=== PATIENT | female | born 1950 | race Caucasian/White ===

== ENCOUNTER → 2025-09-20 10:48 | Outpatient (CLI) | payer OTHER, SELFPAY ==
--- NOTE | 2025-09-20 10:50 | EKG_ITS ---
[address] [address] Test Date: 2025-09-20 Pat Name: Adela Peralta Department: Located Within [facility] Room: Gender: Female Court Bailiff: SUKUMAR : 1950 Requested By: Order Number: [id number] Reading MD: Bruce Luevano MD Measurements Intervals [place] Rate: 60 P: 17 SC: 138 QRS: 38 QRSD: 84 T: 43 QT: 422 QTc: 422 Interpretive Statements Normal sinus rhythm Electronically Signed On 09-20-2025 12:00:34 PST by Bruce Luevano MD
[2025-09-20 11:17] LABS: Add Manual Diff / Slide Review NO; Hematocrit 45.9 % (36-46); Hemoglobin 15.4 g/dL (12.0-16.0); Lymphocytes Absolute Auto 1800 /uL (1100-4500); Mean Corpuscular HGB Conc 33.6 % (30-36); Mean Corpuscular Hemoglobin 29.8 PG (26-34); Mean Corpuscular Volume 88.7 fL (80-100); Platelet Count 225 X10^3/uL (150-400)
[2025-09-20 11:35] LABS: Hemoglobin A1C% w Est Avg Glu 5.3 % (4.0-6.0)
[2025-09-20 11:37] LABS: Albumin 4.7 g/dL (3.5-5.0); Blood Urea Nitrogen 13 mg/dL (7-17); Calcium 9.4 mg/dL (8.4-10.2); Carbon Dioxide 28 mmol/L (22-32); Chloride 106 mmol/L (98-107); Estimated Glomerular Filt Rate > 60 mL/min (>60); Glucose 98 mg/dL (70-99); HEMOLYSIS 22 (0-50); Potassium 4.9 mmol/L (3.4-5.1); Sodium 142 mmol/L (137-145)
[2025-09-20 11:44] LABS: Prealbumin 25.5 mg/dL (17.6-36.0)
[2025-09-20 11:52] LABS: Vitamin D 25 Hydroxy (D3) 30.7 ng/mL (30.0-100.0)
== END ==
PROVIDERS: PCP Family Medicine; Referring Provider Orthopaedic Surgery Adult Reconstructive Orthopaedic Surgery; Visit Provider Orthopaedic Surgery Adult Reconstructive Orthopaedic Surgery
DX: Z01.818 Encounter for other preprocedural examination (principal)
CPT/HCPCS: 36415; 80048; 82040; 82306; 83036; 84134; 85025; 85651; 86140; 93005; 93010